=== PATIENT | female | born 1960 | race Caucasian/White ===

== ENCOUNTER → 2016-11-11 | Outpatient (CLI) | payer MEDICAID | LOC: BRMIMAGING 12:28 | PROVIDERS: ATTEND Registered Nurse | DX: M79.89 Other specified soft tissue disorders (principal); M79.1 Myalgia | CPT/HCPCS: 73130-PO ==

== ENCOUNTER → 2017-04-09 | Outpatient (CLI) | payer MEDICAID | LOC: BRMIMAGING 08:52 | PROVIDERS: ATTEND Internal Medicine Rheumatology | DX: M79.1 Myalgia (principal) | CPT/HCPCS: 73130-PO; 73521-PO ==